=== PATIENT | male | born 1965 | race Caucasian/White ===

== ENCOUNTER 2017-04-15 15:14 | Inpatient (IN) | payer OTHER ==
[~2017-04-15] VITALS: Ht 182.9 cm; Wt 120.0 kg
[2017-04-17] VITALS (16 sets, daily range): BP systolic 117–156; BP diastolic 62–95; PULSE 70–81; RESP 10–34; Ht 182.9 cm; Wt 120.0 kg
[2017-04-17] MEDS ORDERED: traMADol 50 MG TAB PO ONE (06:00)
[2017-04-17] MEDS ORDERED: GABAPENTIN 300 MG CAP PO ONE (06:00)
[2017-04-17] MEDS ORDERED: VANCOMYCIN 1 GM (PMX) 250 ML IVPB ONE (06:00)
[2017-04-17] MEDS ORDERED: DEXAMETHASONE 1 MG TAB PO ONE (06:00)
[2017-04-17] MEDS ORDERED: HYDR25TA6 PO (06:14)
[2017-04-17] MEDS ORDERED: METF500T4 PO (06:14)
[2017-04-17] MEDS ORDERED: AMLO-147 PO (06:14)
[2017-04-17] MEDS ORDERED: CA CHLORIDE 10% 10 ML SYRINGE ONE (06:43)
[2017-04-17] MEDS ORDERED: BUPIVACAINE 0.5%/EPI (SDV) 30 ML INJ ONE (06:43)
[2017-04-17] MEDS ORDERED: THROMBIN 5000 UNIT VIAL ONE (06:43)
[2017-04-17] MEDS ORDERED: POLYMYXIN/BACITRACIN 1L IRRIG ONE (06:43)
[2017-04-17] MEDS ORDERED: ROPIVACAINE 0.5 % 30 ML VIAL ONE (06:44)
--- NOTE | 2017-04-17 06:47 | HPN ---
Date/Time of Note Date/Time of Note DATE: 04/17/17 TIME: 06:47 Interval H&P Admission Note Pt. seen H&P reviewed: No system changes TSERING MCKOY MD Apr 17, 2017 06:47
[2017-04-17] MEDS ORDERED: ONDANSETRON 4 MG INJ ONE (07:35)
[2017-04-17] MEDS ORDERED: PROPOFOL 20 ML ONE (07:35)
[2017-04-17] MEDS ORDERED: LIDOCAINE 2% (SDV) 5 ML INJ ONE (07:35)
[2017-04-17] MEDS ORDERED: METOCLOPRAMIDE 10 MG INJ ONE (07:36)
[2017-04-17] MEDS ORDERED: LABETALOL HCL 20MG INJ ONE (07:48)
[2017-04-17] MEDS ORDERED: METOCLOPRAMIDE 10 MG INJ IV PRN (08:30)
[2017-04-17] MEDS ORDERED: OXYCODONE/ACETAMINOPHEN (5/325) TAB PO PRN ×3 (08:30→09:00)
[2017-04-17] MEDS ORDERED: FENTAnyl 50 MCG/ML VIAL IV PRN ×3 (08:30)
[2017-04-17] MEDS ORDERED: ONDANSETRON 4 MG INJ IV PRN ×2 (08:30→09:00)
[2017-04-17] MEDS ORDERED: MEPERIDINE 25 MG INJ IV PRN (08:30)
[2017-04-17] MEDS ORDERED: MIDAZOLAM 1 MG/ML 2 ML INJ IV PRN (08:30)
[2017-04-17] MEDS ORDERED: LABETALOL HCL 20MG INJ IV PRN (08:30)
[2017-04-17] MEDS ORDERED: EPHEDrine SULFATE 50 MG/5 ML SYG IV PRN (08:30)
[2017-04-17] MEDS ORDERED: DIPHENHYDRAMINE 50 MG INJ IV PRN ×2 (08:30→09:00)
[2017-04-17] MEDS ORDERED: hydrALAzine 20 MG INJ IV PRN (08:30)
[2017-04-17] MEDS ORDERED: HYDROmorphONE (0.2 MG/ML) 10ML SYG IV PRN ×3 (08:30)
--- NOTE | 2017-04-17 08:49 | OPR ---
Date/Time of Note Date/Time of Note DATE: 04/17/17 TIME: 08:46 Operative Report Procedure Date: Apr 17, 2017 Preoperative Diagnosis Right shoulder severe arthritis Postoperative Diagnosis Right shoulder severe primary arthritis Operation/Procedure Performed Right shoulder hemiarthroplasty Surgeon see signature line Laboratory Clerk Donovan Burns MD Anesthesia Type: general Estimated Blood Loss: 50 - 100 ml's Transfusion none Specimen None Grafts/Implants none Complications none Pt Condition Post Procedure: stable Disposition: PACU Procedure Description WIND TUNNEL MECHANIC SURGEON: Donovan Burns MD was asked to be present for this case at my request. Assistance was necessary as a result of the highly technical nature of this operation. When performing an open total shoulder replacement, it is critical to have a trained assistant chief engineer who is an expert in handling the extremity and assisting the surgeon in tasks such as suture management and knot- tying techniques as well as implants. This assistance cannot be performed by a cnc service technician, as it is considered an integral part of the procedure and the assistant chief engineer should be compensated for their time. PROCEDURE IN DETAIL: Following the administration of general anesthesia supplemented with a peripheral nerve block for postoperative pain control, the patient was examined under anesthesia. Examination of the shoulder revealed severe stiffness with 0 external rotation and 10 of internal rotation severe crepitus throughout. The patient was then placed in the beach chair position. Sterile prep and drape was then undertaken. An extended deltopectoral incision was then carried through the interval exposing the conjoined tendon and retracting it medially. The subscapularis was incised and mobilized. Severe arthritic changes were noted with very large peripheral osteophytes. Multiple loose bodies were removed from the joint. The biceps tendon was identified and it had moderate fraying within the groove. There is a severe deformity of the glenoid as well. A humeral head osteotomy was then created in the appropriate degree of version and inclination. The humerus was retracted and the glenoid was exposed. Large peripheral osteophytes were removed from the glenoid. Based on the severity of the disease process the significant retroversion and what appeared to be relatively thin superior rotator cuff as well as subscapularis, a decision was then made to perform only a hemiarthroplasty. The humerus was then reamed and prepared for a 12 mm humeral component with a 48 x 15 mm humeral head. The actual components were implanted with solid fixation. The subscapularis was reapproximated using #2 sutures that were passed circumferentially around the humerus with a watertight closure of the interval. The arm was taken through full range of motion with no evident instability. The joint was then thoroughly irrigated, the deep tissues were approximated using #1 suture followed by closure of the deep layer using 2-0 Monocryl. The skin was closed using 4-0 Monocryl suture, and a Prenio dressing. An Ultrasling was then applied. The patient was awakened and transported to the recovery room in stable condition. Estimated blood loss for this procedure was 50 cc. Radiographs will be obtained in the recovery room. TSERING MCKOY MD Apr 17, 2017 08:49
[2017-04-17] MEDS: HYDROCHLOROTHIAZIDE 25 MG TAB PO SCH (09:00)
[2017-04-17] MEDS: AMLODIPINE 10 MG TAB PO SCH (09:00)
[2017-04-17] MEDS ORDERED: KETOROLAC 15 MG INJ IV PRN (09:00)
[2017-04-17] MEDS ORDERED: TRANEXAMIC ACID 1,000 MG in SOD CHLORIDE 0.9% 100 ML IV ONE (09:00)
[2017-04-17] MEDS ORDERED: MAGNESIUM HYDROXIDE 30ML CUP PO PRN (09:00)
[2017-04-17] MEDS ORDERED: morphine 2 MG INJ IV PRN (09:00)
[2017-04-17] MEDS ORDERED: ACETAMINOPHEN 500 MG TAB PO PRN (09:00)
[2017-04-17] MEDS ORDERED: ZOLPIDEM 5 MG TAB PO PRN (09:00)
[2017-04-17] MEDS ORDERED: morphine 4 MG/ML VIAL IV PRN (09:00)
[2017-04-17] MEDS ORDERED: metFORMIN 500 MG TAB PO PRN (09:00)
[2017-04-17] MEDS ORDERED: BUPIVACAINE 0.5% (SDV) 30 ML, morphine SULFATE (PF) 8 MG, EPINEPHrine 0.3 MG, KETOROLAC... IRR SCH ×7 (09:30)
[2017-04-17] MEDS ORDERED: TRANEXAMIC ACID 1,000 MG in SOD CHLORIDE 0.9% 100 ML IVPB ONE (09:30)
--- NOTE | 2017-04-17 10:16 | RADRPT ---
PROCEDURE: XR right shoulder. CLINICAL INDICATION: Pain TECHNIQUE: Frontal and scapula views of the right shoulder were performed. COMPARISON: None. FINDINGS: Status post right shoulder hemiarthroplasty without hardware fracture or loosening. There is slight superior subluxation of the implant head with respect to the glenoid fossa. Postsurgical changes abo ut the shoulder noted. IMPRESSION: Status post right shoulder hemiarthroplasty with slight superior subluxation of the implant head wit h respect to the glenoid fossa. No hardware fracture or loosening. RPTAT: PP Physician Little Date Time Electronically viewed and signed by Emily Mercedes Physician on 04/17/2017 10:15 MD/
--- NOTE | 2017-04-17 11:39 | PDOCDIS ---
Discharge Instructions DIAGNOSIS Discharge Diagnosis Severe arthritis of the right shoulder CONDITION Patient Condition: Good HOME CARE INSTRUCTIONS: Diet Instructions: Regular ACTIVITY: Activity Restrictions: Slowly Increase Activity Keep Limb Elevated Bathing Restrictions: Shower FOLLOW UP/APPOINTMENTS Follow-up Plan 2 weeks in the office SCHOOL/WORK RELEASE May return to School/Work with: With Restrictions School/Work Release Comment: 5 pounds tabletop usage for 6 weeks TSERING MCKOY MD Apr 17, 2017 11:39
[2017-04-17] MEDS: SENNA/DOCUSATE NA (8.6MG/50MG) TAB PO SCH ×2 (11:43→21:06)
[2017-04-17] MEDS: DEXAMETHASONE 2 MG TAB PO SCH ×2 (11:43→18:16)
[2017-04-17] MEDS ORDERED: DEXTROSE 50% 50 ML SYRINGE IV PRN ×2 (12:00)
[2017-04-17] MEDS ORDERED: GLUCOSE GEL 15 GRAM TUBE PO PRN ×2 (12:00)
[2017-04-17] MEDS ORDERED: GLUCAGON 1 MG INJ IM PRN (12:00)
[2017-04-17] MEDS ORDERED: GLUCOSE GEL 15 GRAM TUBE BUCCAL PRN (12:00)
[2017-04-17] MEDS: OXYCODONE/ACETAMINOPHEN (5/325) TAB PO PRN ×2 (16:09→20:03)
[2017-04-17] MEDS: metFORMIN 500 MG TAB PO SCH (18:16)
[2017-04-17] MEDS: VANCOMYCIN 500MG/NS (PMX) 100 ML IVPB SCH (18:16)
[2017-04-17] MEDS: ACCU-CHEK XX SCH (21:00)
[2017-04-17] MEDS ORDERED: GABAPENTIN 300 MG CAP PO SCH (21:00)
[2017-04-18] MEDS: DEXAMETHASONE 2 MG TAB PO SCH ×2 (00:19→06:34)
[2017-04-18] MEDS: OXYCODONE/ACETAMINOPHEN (5/325) TAB PO PRN ×3 (00:20→11:02)
[2017-04-18 00:22] VITALS: BP 130/75; PULSE 79; RESP 18
[2017-04-18] MEDS ORDERED: ACCU-CHEK XX SCH (02:00)
[2017-04-18] MEDS: VANCOMYCIN 500MG/NS (PMX) 100 ML IVPB SCH (06:34)
[2017-04-18 06:41] VITALS: BP 141/87; PULSE 72; RESP 18
--- NOTE | 2017-04-18 06:57 | DS ---
Date/Time of Note Date/Time of Note DATE: 04/18/17 TIME: 06:57 Discharge Summary Admission/Discharge Info Admit Date/Time Apr 17, 2017 at 05:36 Discharge Date/Time April 18, 2017 Discharge Diagnosis Severe arthritis of the right shoulder Patient Condition: Good Hospital Course Patient was admitted and underwent an uncomplicated procedure. Postoperative day #1 he is stable and discharged Home Meds Reported Medications Metformin Hcl* (Metformin Hcl*) 500 Mg Tablet, 500 MG PO WITH BREAKFAST Y for bid, #30 TAB 04/17/17 Amlodipine Besylate* (Amlodipine Besylate*) 10 Mg Tablet, 5 MG PO DAILY, #30 TAB 04/17/17 Hydrochlorothiazide* (Hydrochlorothiazide*) 25 Mg Tab, 25 MG PO DAILY, #30 TAB 04/17/17 Follow-up Plan 2 weeks in the office Primary Care Provider Not On Staff Doctor Pending Labs Laboratory Tests Test 04/17/17 17:35 04/17/17 21:00 Bedside Glucose 163mg/dL (70-220) 190mg/dL (70-220) TSERING MCKOY MD Apr 18, 2017 06:57
--- NOTE | 2017-04-18 06:57 | PN ---
Date/Time of Note Date/Time of Note DATE: 04/18/17 TIME: 06:56 24 hour Interval Summary Patient is awake and alert with minimal pain. Physical Exam Physical examination: He is neurologically intact. His wound is clean and dry. There is minimal edema. There are no signs of DVT. Vital Signs Date Time Temp Pulse Resp B/P Pulse Ox O2 Delivery O2 Flow Rate FiO2 04/18/17 06:41 98.0 72 18 141/87 98 04/18/17 00:22 Room Air 04/17/17 21:11 1.0 Intake and Output 04/17/17 04/17/17 04/18/17 15:00 23:00 07:00 Intake Total 250 ml 1100 ml 600 ml Output Total 50 ml Balance 200 ml 1100 ml 600 ml VTE Prophylaxis VTE Prophylaxis Intervention: SCD's Lines/Catheters IV Catheter Type: Saline Lock Alanis in Place: No Results Results 24hrs Laboratory Tests Test 04/17/17 17:35 04/17/17 21:00 Bedside Glucose 163 190 Assessment/Plan Assessment/Plan Assessment: Status post hemiarthroplasty, right shoulder Plan: He will begin physical therapy as an outpatient. He will be discharged and followed up in the office in 2 weeks. Medications Medications Home Meds Reported Medications Metformin Hcl* (Metformin Hcl*) 500 Mg Tablet, 500 MG PO WITH BREAKFAST Y for bid, #30 TAB 04/17/17 Amlodipine Besylate* (Amlodipine Besylate*) 10 Mg Tablet, 5 MG PO DAILY, #30 TAB 04/17/17 Hydrochlorothiazide* (Hydrochlorothiazide*) 25 Mg Tab, 25 MG PO DAILY, #30 TAB 04/17/17 TSERING MCKOY MD Apr 18, 2017 06:56
[2017-04-18] MEDS: ACCU-CHEK XX SCH (07:20)
[2017-04-18 08:03] VITALS: BP 133/78; PULSE 63; RESP 16
[2017-04-18] MEDS ORDERED: ASPIRIN 81 MG TAB PO SCH (09:00)
[2017-04-18] MEDS: HYDROCHLOROTHIAZIDE 25 MG TAB PO SCH (09:03)
[2017-04-18] MEDS: SENNA/DOCUSATE NA (8.6MG/50MG) TAB PO SCH (09:03)
[2017-04-18] MEDS: metFORMIN 500 MG TAB PO SCH (09:03)
[2017-04-18] MEDS: AMLODIPINE 10 MG TAB PO SCH (09:04)
== END 2017-04-18 11:35 | disposition home or self-care (01) | DRG 483 ==
LOC: REC 15:14 → UNDOADMIN 15:14 → REC 04-17 05:36 → MS1 04-17 10:17
PROVIDERS: ADMIT Orthopaedic Surgery; ATTEND Orthopaedic Surgery
PROC: 0RRJ0J6 Replacement of Right Shoulder Joint with Synthetic Substitute, Humeral Surface, Open Approach (ICD-10-PCS; principal; 2017-04-17 07:00)
DX: M19.011 Primary osteoarthritis, right shoulder (principal)
CPT/HCPCS: 82962; 86999; 97110; 97165; 97535; C1776; J0171; J0735; J1885; J2274; J2405; J2765; J2795; J3370

== ENCOUNTER 2018-07-02 12:00 | Inpatient (IN) | payer OTHER ==
[~2018-07-02] VITALS: Ht 182.9 cm; Wt 122.9 kg
[~2018-07-02 12:00] MED LIST: AMLO-147 PO; HYDR25TA6 PO; METF500T24 PO
[2018-09-22 18:33] VITALS: BMI 36.0
[2018-09-24] VITALS (28 sets, daily range): BP systolic 112–177; BP diastolic 55–96; PULSE 69–108; RESP 15–18; Ht 182.9 cm; Wt 122.9 kg
--- NOTE | 2018-09-24 05:50 | HPN ---
Date/Time of Note Date/Time of Note DATE: 09/24/18 TIME: 05:50 Interval H&P Admission Note Pt. seen H&P reviewed: No system changes TSERING MCKOY MD September 24, 2018 05:50
--- NOTE | 2018-09-24 05:53 | OPR ---
Date/Time of Note Date/Time of Note DATE: 09/24/18 TIME: 05:50 Operative Report Procedure Date: September 24, 2018 Preoperative Diagnosis Left shoulder secondary arthritis Postoperative Diagnosis 1. Left shoulder secondary arthritis 2. Left shoulder acromioclavicular joint arthritis 3. Left shoulder massive unrepairable rotator cuff tear Operation/Procedure Performed 1. Left reverse total shoulder replacement 2. Left open distal clavicular excision 3. Left shoulder injection of PRP solution Surgeon see signature line Automobile Detailer Nabeel Diaz DO Second Automobile Detailer: DEEJAY THORNTON PA-C Anesthesia Type: general Estimated Blood Loss: 150 - 200 ml's Transfusion none Specimen NONE Grafts/Implants none Complications none Pt Condition Post Procedure: stable Disposition: PACU Procedure Description PILER SURGEON: Nabeel Diaz DO was asked to be present for this case at my request. Assistance was necessary as a result of the highly technical nature of this operation. When performing an open total shoulder replacement, it is critical to have a trained fleet assistant who is an expert in handling the extremity and assisting the surgeon in tasks such as manipulation of the arm, protection of the neurovascular structures and positioning the implants. This assistance cannot be performed by a cooking appliance repair technician, as it is considered an integral part of the procedure and the fleet assistant should be compensated for his time. PROCEDURE IN DETAIL: Following the administration of general anesthesia supplemented with a peripheral nerve block for postoperative pain control, the patient was examined under anesthesia. This revealed severe stiffness and significant glenohumeral as well as subacromial crepitus. Motion was markedly limited to less than 60 degrees of abduction and 45 degrees of external rotation. The antecubital fossa was then prepped and 60 cc of blood were aspirated. The blood was then subsequently given to the home furnishings sales representative from the company to prepare the PRP solution. The patient was then placed in the beach chair position. Sterile prep and drape was then undertaken of the left upper extremity. An extended deltopectoral incision was then carried through the interval exposing the conjoined tendon and retracting it medially. The superior aspect of the joint was then evaluated. Significant osteophytes were noted in the acromioclavicular joint. The acromioclavicular joint capsule was then entered and the distal clavicle skeletonized for a distance of 10 mm. Severe arthritic changes were noted. An osteotome was then used to resect 10 mm of the distal clavicle. Good decompression was confirmed. The AC joint was irrigated and closed using a #2 interrupted suture. The subscapularis was noted to be partially disrupted superiorly. Very severe arthritic changes were noted with very large peripheral osteophytes and a flattened humeral head. The superior rotator cuff was torn and retracted. The biceps tendon was chronically torn and retracted. The intra-articular portion was resected. A humeral head osteotomy was then created in the appropriate degree of version and inclination. The humerus was retracted and the glenoid was exposed. Peripheral osteophytes were removed and a complete capsulectomy performed. The central canal of the glenoid was then entered and prepared for a standard Depuy baseplate. A standard Depuy baseplate was then applied with four peripheral screws and solid fixation. A 38 mm glenosphere was then applied, with solid fixation. The humerus was then reamed and prepared for a 14 mm humeral component with a standard metaphyseal component with a 9 mm liner. The humeral canal was irr igated and the PRP solution was implanted within the humeral canal. The actual components were implanted with solid fixation. The arm was taken through full range of motion with no evident instability. The joint was then thoroughly irrigated, the deep tissues were approximated using #1 suture followed by closure of the deep layer using 2-0 Monocryl. The skin was closed using 4-0 Monocryl suture, and a Prenio dressing. An Ultrasling was then applied. The patient was awakened and transported to the recovery room in stable condition. Estimated blood loss for this procedure was 200 cc. Radiographs will be obtained in the recovery room. TSERING MCKOY MD September 24, 2018 05:53
[2018-09-24] MEDS ORDERED: TRANEXAMIC ACID 1GM/100ML(PMX) 100 ML IVPB SCH (06:00)
[2018-09-24] MEDS ORDERED: VANCOMYCIN 1 GM (PMX) 250 ML IVPB SCH (06:00)
[2018-09-24] MEDS ORDERED: DEXAMETHASONE 1 MG TAB PO SCH (06:00)
[2018-09-24] MEDS ORDERED: GABAPENTIN 300 MG CAP PO SCH ×2 (06:00→21:00)
[2018-09-24] MEDS ORDERED: BUPIVACAINE 0.5% (SDV) 30 ML, morphine SULFATE (PF) 8 MG, EPINEPHrine 0.3 MG, KETOROLAC... IRR SCH ×7 (06:00)
[2018-09-24] MEDS ORDERED: BUPIVACAINE 0.5%/EPI (SDV) 30 ML INJ ONE (07:12)
[2018-09-24] MEDS ORDERED: CA CHLORIDE 10% 10 ML SYRINGE ONE (07:12)
[2018-09-24] MEDS ORDERED: POLYMYXIN/BACITRACIN 1L IRRIG ONE (07:12)
[2018-09-24] MEDS ORDERED: THROMBIN 5000 UNIT VIAL ONE (07:12)
[2018-09-24] MEDS ORDERED: METF500T24 PO (07:32)
[2018-09-24] MEDS ORDERED: HYDR25TA6 PO (07:32)
[2018-09-24] MEDS ORDERED: AMLO5TAB4 PO (07:33)
[2018-09-24] MEDS ORDERED: INDO-39 PO (07:35)
[2018-09-24] MEDS ORDERED: FENTAnyl 50 MCG/ML VIAL ONE (07:55)
[2018-09-24] MEDS ORDERED: PROPOFOL 20 ML ONE ×2 (07:55→09:54)
[2018-09-24] MEDS ORDERED: MIDAZOLAM 1 MG/ML 2 ML INJ ONE (07:56)
[2018-09-24] MEDS ORDERED: ONDANSETRON 4 MG INJ ONE (07:56)
[2018-09-24] MEDS ORDERED: ROPIVACAINE 0.2% 20 ML VIAL ONE (07:56)
[2018-09-24] MEDS ORDERED: METOCLOPRAMIDE 10 MG INJ ONE (07:56)
[2018-09-24] MEDS ORDERED: ROPIVACAINE 0.5 % 30 ML VIAL ONE (07:57)
--- NOTE | 2018-09-24 08:12 | PREAC ---
Date/Time of Note Date/Time of Note DATE: 09/24/18 TIME: 08:07 Anesthesia Eval and Record Evaluation Time Pre-Procedure Interview DATE: 09/24/18 TIME: 08:07 Age 53 Sex male NPO: 8 hrs Preoperative diagnosis left shoulder secondary arthritis Planned procedure left shouklder replacement Past Medical History Past Medical History: Includes Cardio: HTN Endo: Diabetes Pulm: Sleep Apnea GI: Obesity Surgery & Anesthesia Issues Hx of PONV, No known issue Meds Anticoagulation: No Beta Mariano within 24 hr: No Reason Beta Mariano not given: Pt. not on B-Mariano Reported Medications Indomethacin* (Indocin*) 50 Mg Cap, 75 MG PO DAILY, CAP 75 MG ER 09/24/18 Amlodipine Besylate* (Norvasc*) 5 Mg Tablet, 5 MG PO DAILY, TAB 09/24/18 Hydrochlorothiazide* (Hydrochlorothiazide*) 25 Mg Tab, 25 MG PO DAILY, #30 TAB 09/24/18 Metformin Hcl* (Metformin Hcl*) 500 Mg Tablet, 500 MG PO WITH BREAKFAST DINNE, #60 TAB 09/24/18 Discontinued Reported Medications Metformin Hcl* (Metformin Hcl*) 500 Mg Tablet, 500 MG PO WITH BREAKFAST PRN for bid, #30 TAB 04/17/17 Amlodipine Besylate* (Amlodipine Besylate*) 10 Mg Tablet, 5 MG PO DAILY, #30 TAB 04/17/17 Hydrochlorothiazide* (Hydrochlorothiazide*) 25 Mg Tab, 25 MG PO DAILY, #30 TAB 04/17/17 Current Medications Vancomycin HCl 250 ml @ 250 mls/hr PRE-OP IVPB Last administered on 09/24/18at 07:35; Admin Dose 250 MLS/HR; Start 09/24/18 at 06:00; Stop 09/24/18 at 16:00 Tranexamic Acid 100 ml @ 0 mls/hr Q0M IVPB ; Start 09/24/18 at 06:00; Stop 09/24/18 at 16:00 Bupivacaine HCl/ Morphine Sulfate/ Epinephrine/ Ketorolac Tromethamine/ Clonidine HCl/ Sodium Chloride/ Vancomycin HCl INTRA-OP IRR ; Start 09/24/18 at 06:00 Dexamethasone (Decadron) 2 mg PREOP PO Last administered on 09/24/18at 07:34; Admin Dose 2 MG; Start 09/24/18 at 06:00; Stop 09/24/18 at 16:00 Gabapentin (Neurontin) 300 mg ONCE PO Last administered on 09/24/18at 07:35; Admin Dose 300 MG; Start 09/24/18 at 06:00; Stop 09/24/18 at 16:00 Meds reviewed: Yes Allergies Coded Allergies: Penicillins (Verified Allergy, Unknown, 09/24/18) Allergies Reviewed: Yes Labs/Studies Labs Reviewed: Reviewed by anesthesiologist Result Diagram: 09/24/18 0727 Laboratory Tests 09/24/18 07:27 test: N/A Studies: ECG (sr), CXR (nl) Pre-procedure Exam Last vitals Vital Signs Date Temp Pulse Resp B/P (MAP) Pulse Ox O2 O2 Flow FiO2 Time Delivery Rate 09/24/18 98.0 73 18 162/95 95 Room Air 07:52 (117) Airway: Adequate mouth opening Mallampati: Mallampati II Teeth: Normal Lung: Normal Heart: Normal ASA Physical Status ASA physical status: 2 Emergency: None Planned Anesthetic General/MAC: ETT, LMA Nerve block: Brachial plexus (left) Planned Pain Management Single shot nerve block, Parenteral pain med Pre-operative Attestations Prior to commencing anesthesia and surgery, the patient was re-evaluated, there was verification of: *The patient's identity *The results of appropriate recent lab work and preoperative vital signs *The above evaluation not changing prior to induction *Anesthetic plan, risk benefits, alternative and complications discussed with patient/family; questions answered; patient/family understands, accepts and wishes to proceed. AXEL FLOREZ MD September 24, 2018 08:12
[2018-09-24] MEDS ORDERED: CEFAZOLIN 1 GM INJ ONE (08:31)
[2018-09-24] MEDS ORDERED: HYDROmorphONE 2 MG/ML SYG ONE (08:31)
[2018-09-24] MEDS ORDERED: hydrALAzine 20 MG INJ ONE (08:44)
[2018-09-24] MEDS ORDERED: TRANEXAMIC ACID 1GM/100ML(PMX) 100 ML ONE ×2 (08:59→09:54)
[2018-09-24] MEDS ORDERED: LABETALOL HCL 20MG INJ IV PRN (09:00)
[2018-09-24] MEDS ORDERED: KETOROLAC 30 MG INJ IV PRN (09:00)
[2018-09-24] MEDS ORDERED: FENTAnyl 50 MCG/ML VIAL IV PRN ×3 (09:00)
[2018-09-24] MEDS ORDERED: MEPERIDINE 25 MG INJ IV PRN (09:00)
[2018-09-24] MEDS ORDERED: ONDANSETRON 4 MG INJ IV PRN ×2 (09:00→10:00)
[2018-09-24] MEDS ORDERED: hydrALAzine 20 MG INJ IV PRN (09:00)
[2018-09-24] MEDS ORDERED: DIPHENHYDRAMINE 50 MG INJ IV PRN ×2 (09:00→10:00)
[2018-09-24] MEDS ORDERED: HYDROmorphONE 1 MG/5 ML IV SYRINGE IV PRN ×3 (09:00)
[2018-09-24] MEDS ORDERED: oxyCODONE 5 MG TAB PO PRN ×2 (10:00)
[2018-09-24] MEDS ORDERED: ZOLPIDEM 5 MG TAB PO PRN (10:00)
[2018-09-24] MEDS ORDERED: LOPERAMIDE 2 MG CAP PO PRN (10:00)
[2018-09-24] MEDS ORDERED: NACL 0.9% 3 ML SYG IV SCH (10:00)
[2018-09-24] MEDS ORDERED: HYDROmorphONE 1 MG/ML SYG IV PRN (10:00)
[2018-09-24] MEDS ORDERED: MAGNESIUM HYDROXIDE 30ML CUP PO PRN (10:00)
[2018-09-24] MEDS ORDERED: TRANEXAMIC ACID 1GM/100ML(PMX) 100 ML IVPB ONE (10:00)
[2018-09-24] MEDS ORDERED: KETOROLAC 30 MG INJ ONE (10:16)
--- NOTE | 2018-09-24 12:38 | PDOCDIS ---
Discharge Instructions DIAGNOSIS Discharge Diagnosis Shoulder arthritis CONDITION [id number] Patient Condition: [id number] Good HOME CARE INSTRUCTIONS: [id number] Diet Instructions: [id number] Regular ACTIVITY: [id number] Activity Restrictions: [id number] Slowly Increase Activity Keep Limb Elevated [id number] Bathing Restrictions: [id number] Shower FOLLOW UP/APPOINTMENTS Follow-up Plan 2 weeks in the office SCHOOL/WORK RELEASE May return to School/Work with: With Restrictions School/Work Release Comment: 5 pound tabletop usage for 6 weeks TSERING MCKOY MD September 24, 2018 12:38
[2018-09-24] MEDS: KETOROLAC 15 MG INJ IV PRN ×2 (13:26→21:55)
[2018-09-24] MEDS: DEXAMETHASONE 2 MG TAB PO SCH ×3 (13:26→23:54)
[2018-09-24] MEDS: ACETAMINOPHEN 500 MG TAB PO SCH ×3 (13:26→23:54)
[2018-09-24] MEDS: oxyCODONE 5 MG TAB PO PRN (17:03)
[2018-09-24] MEDS: metFORMIN 500 MG TAB PO SCH (17:56)
[2018-09-24] MEDS ORDERED: VANCOMYCIN 500 MG (PMX) 100 ML IVPB SCH (18:00)
[2018-09-24] MEDS: VANCOMYCIN 500 MG (PMX) 100 ML IVPB SCH (20:10)
[2018-09-24] MEDS: SENNA/DOCUSATE NA (8.6MG/50MG) TAB PO SCH (20:12)
[2018-09-25 00:30] VITALS: BP 131/68; PULSE 89; RESP 18
[2018-09-25] MEDS: ACETAMINOPHEN 500 MG TAB PO SCH ×2 (05:48→12:09)
[2018-09-25] MEDS: DEXAMETHASONE 2 MG TAB PO SCH (05:48)
--- NOTE | 2018-09-25 06:24 | PN ---
Date/Time of Note Date/Time of Note DATE: 09/25/18 TIME: 06:23 Subjective Awake and alert with no complaints Objective Vitals Vital Signs Date Temp Pulse Resp B/P (MAP) Pulse Ox O2 O2 Flow FiO2 Time Delivery Rate 09/25/18 98.5 89 18 131/68 96 00:30 (89) 09/24/18 Nasal 2.0 20:00 Cannula Intake and Output 09/24/18 09/24/18 09/25/18 1515:00 23:00 07:00 IntakeIntake Total 1200 ml 100 ml OutputOutput Total 200 ml 200 ml BalanceBalance 1000 ml 100 ml -200 ml Wound clean and dry. Neurologically intact. No signs of DVT. Results Result Diagram: 09/24/18 0727 Medications Medications Current Medications Amlodipine Besylate (Norvasc) 5 mg DAILY PO ; Start 09/25/18 at 09:00 Hydrochlorothiazide (Hydrochlorothiazide) 25 mg DAILY PO ; Start 09/25/18 at 09:00 Metformin HCl (Glucophage) 500 mg WITH BREAKFAST DINNE PO Last administered on 09/24/18at 17:56; Admin Dose 500 MG; Start 09/24/18 at 17:55 Senna/Docusate Sodium (Senokot-S) 1 tab BID PO Last administered on 09/24/18at 20:12; Admin Dose 1 TAB; Start 09/24/18 at 21:00 Simethicone (Mylicon) 80 mg TID PRN PO .GAS; Start 09/24/18 at 10:00 Magnesium Hydroxide (Milk Of Mag) 30 ml BID PRN PO .CONSTIPATION; Start 09/24/18 at 10:00 Loperamide HCl (Imodium Cap) 2 mg Q6H PRN PO .DIARRHEA; Start 09/24/18 at 10:00 Gabapentin (Neurontin) 300 mg HS PO Last administered on 09/24/18at 20:12; Admin Dose 300 MG; Start 09/24/18 at 21:00 Acetaminophen (Tylenol Tab) 500 mg Q6 PO Last administered on 09/25/18at 05:48; Admin Dose 500 MG; Start 09/24/18 at 12:00 Oxycodone HCl (Roxicodone) 15 mg Q4H PRN PO .PAIN; Start 09/24/18 at 10:00 Oxycodone HCl (Roxicodone) 10 mg Q4H PRN PO .PAIN; Start 09/24/18 at 10:00 Oxycodone HCl (Roxicodone) 5 mg Q4H PRN PO .PAIN Last administered on 09/24/18at 17:03; Admin Dose 5 MG; Start 09/24/18 at 10:00 Hydromorphone HCl (Dilaudid) 1 mg Q4H PRN IV .BREAKTHROUGH PAIN; Start 09/24/18 at 10:00 Ketorolac Tromethamine (Toradol) 15 mg Q6H PRN IV .PAIN Last administered on 09/24/18at 21:55; Admin Dose 15 MG; Start 09/24/18 at 10:00 Ondansetron HCl (Zofran Inj) 4 mg Q6H PRN IV NAUSEA/VOMITING; Start 09/24/18 at 10:00 Diphenhydramine HCl (Benadryl) 25 mg Q6H PRN IV .PRURITUS; Start 09/24/18 at 10:00 Zolpidem Tartrate (Ambien) 10 mg HS PRN PO .INSOMNIA; Start 09/24/18 at 10:00 IV Flush (NS 3 ml) 3 ml per protocol IV ; Start 09/24/18 at 10:00 Vancomycin HCl 100 ml @ 100 mls/hr Q12H IVPB Last administered on 09/24/18at 20:10; Admin Dose 100 MLS/HR; Start 09/24/18 at 20:00; Stop 09/25/18 at 08:59 VTE Prophylaxis Risk score (from Nsg)>0 risk: 4 SCD applied (from Nsg): Yes Lines/Catheters IV Catheter Type: Saline Lock Alanis in Place: No Assessment/Plan Assessment/Plan Assessment: Status post reverse total shoulder Plan: Begin PT this morning discharge after TSERING MCKOY MD September 25, 2018 06:24
--- NOTE | 2018-09-25 06:25 | DS ---
Date/Time of Note Date/Time of Note DATE: 09/25/18 TIME: 06:24 Discharge Summary Admission/Discharge Info Admit Date/Time September 24, 2018 at 06:27 Discharge Date/Time 09/25/2018 Discharge Diagnosis Shoulder arthritis Patient Condition: Good Hospital Course Admitted, underwent uncomplicated procedure. Postop day 1 stable afebrile discharge home to be followed in 2 weeks Home Meds Reported Medications Indomethacin* (Indocin*) 50 Mg Cap, 75 MG PO DAILY, CAP 75 MG ER 09/24/18 Amlodipine Besylate* (Norvasc*) 5 Mg Tablet, 5 MG PO DAILY, TAB 09/24/18 Hydrochlorothiazide* (Hydrochlorothiazide*) 25 Mg Tab, 25 MG PO DAILY, #30 TAB 09/24/18 Metformin Hcl* (Metformin Hcl*) 500 Mg Tablet, 500 MG PO WITH BREAKFAST DINNE, #60 TAB 09/24/18 Discontinued Reported Medications Metformin Hcl* (Metformin Hcl*) 500 Mg Tablet, 500 MG PO WITH BREAKFAST PRN for bid, #30 TAB 04/17/17 Amlodipine Besylate* (Amlodipine Besylate*) 10 Mg Tablet, 5 MG PO DAILY, #30 TAB 04/17/17 Hydrochlorothiazide* (Hydrochlorothiazide*) 25 Mg Tab, 25 MG PO DAILY, #30 TAB 04/17/17 Follow-up Plan 2 weeks in the office Primary Care Provider Not On Staff Doctor Pending Labs Laboratory Tests Test 09/24/18 07:27 09/24/18 07:31 09/24/18 17:54 White Blood Count 6.5 10^3/ul (4.8-10.8) Red Blood Count 4.84 10^6/ul (4.70-6.10) Hemoglobin 15.0 g/dl (14.0-18.0) Hematocrit 41.5 % (42.0-52.0) Mean Corpuscular 85.7 Volume fl (82.0-101.0) Mean Corpuscular 31.0 pg (29.0-33.0) Hemoglobin Mean Corpuscular 36.1 Hemoglobin Concent g/dl (32.0-37.0) Red Cell 12.0 % (11.5-14.5) Distribution Width Platelet Count 231 10^3/UL (140-415) Mean Platelet 10.1 fl (7.4-10.4) Volume Immature 1.800 Granulocytes % % (0.001-0.429) Neutrophils % 57.9 % (39.0-77.0) Lymphocytes % 28.2 % (15.0-51.0) Monocytes % 8.6 % (0.0-11.0) Eosinophils % 2.3 % (0.0-7.0) Basophils % 1.2 % (0.0-2.0) Nucleated Red Blood 0.0 Cells % /100WBC (0.0-0.0) Immature 0.120 Granulocytes # 10^3/ul (0.0-0.031) Neutrophils # 3.8 10^3/ul (1.6-7.5) Lymphocytes # 1.8 10^3/ul (0.8-2.9) Monocytes # 0.6 10^3/ul (0.3-0.9) Eosinophils # 0.2 10^3/ul (0.0-0.5) Basophils # 0.1 10^3/ul (0.0-0.1) Nucleated Red Blood 0.0 Cells # 10^3/ul (0.0-0.0) Bedside Glucose 169 mg/dL (70-220) 265 mg/dL (70-220) TSERING MCKOY MD September 25, 2018 06:25
[2018-09-25 07:25] VITALS: BP 131/62; PULSE 82; RESP 19
[2018-09-25] MEDS: metFORMIN 500 MG TAB PO SCH (08:45)
[2018-09-25] MEDS: SENNA/DOCUSATE NA (8.6MG/50MG) TAB PO SCH (08:45)
[2018-09-25] MEDS: VANCOMYCIN 500 MG (PMX) 100 ML IVPB SCH (08:46)
--- NOTE | 2018-09-25 08:50 | PAC ---
Date/Time of Note Date/Time of Note DATE: 09/25/18 TIME: 08:50 Post-Anesthesia Notes Post-Anesthesia Note Last documented vital signs Vital Signs Date Temp Pulse Resp B/P (MAP) Pulse Ox O2 O2 Flow FiO2 Time Delivery Rate 09/25/18 98.2 82 19 131/62 98 07:25 (85) 09/24/18 Nasal 2.0 20:00 Cannula Activity: WNL Respiratory function: WNL Cardiovascular function: WNL Mental status: Baseline Pain reasonably controlled: Yes Hydration appropriate: Yes Nausea/Vomiting absent: No AXEL FLOREZ MD September 25, 2018 08:50
[2018-09-25] MEDS ORDERED: AMLODIPINE 5 MG TAB PO SCH (09:00)
[2018-09-25] MEDS ORDERED: HYDROCHLOROTHIAZIDE 25 MG TAB PO SCH (09:00)
[2018-09-25] MEDS: oxyCODONE 5 MG TAB PO PRN (12:58)
== END 2018-09-25 13:25 | disposition home or self-care (01) | DRG 483 ==
LOC: REC 09-24 06:27 → MS1 09-24 12:27
PROVIDERS: ADMIT Orthopaedic Surgery; ATTEND Orthopaedic Surgery
PROC: 0PBB0ZZ Excision of Left Clavicle, Open Approach (ICD-10-PCS; 2018-09-24)
PROC: 0RRK00Z Replacement of Left Shoulder Joint with Reverse Ball and Socket Synthetic Substitute, Open Approach (ICD-10-PCS; principal; 2018-09-24 08:30)
DX: M19.212 Secondary osteoarthritis, left shoulder (principal); I10 Essential (primary) hypertension; E11.9 Type 2 diabetes mellitus without complications
CPT/HCPCS: 73030; 82962; 85025; 86999; 88304; 88311; 97161; C1776; J0171; J0360; J0690; J1170; J1885; J2250; J2274; J2405; J2765; J2795; J3010; J3370